=== PATIENT | female | born 1955 | race Caucasian/White ===

== ENCOUNTER 2021-05-01 00:23 | Emergency (ER) | payer OTHER ==
[~2021-05-01] VITALS: Ht 170.2 cm; Wt 72.6 kg
--- NOTE | ~2021-05-01 | EMS ---
[address] [address] EMS Patient Care Report Name: JERRY ARNOLD Room #: DEP VIDA Hays#: [id number] Admission: 05/01/21 Attend Phys: Discharge: 05/01/21 Date of : 53 Report #: [id number] THIS REPORT FOR: //name// Report Transmitted: 05/02/2021 09:44 EMS Care Summary [place], [place]/[facility] Incident [id number] @ 04/30/2021 23:29 Incident Location [address] [place] [address] Patient JERRY ARNOLD Female, 66 Years 1955 Patient Address [address] [place] [address] Patient History Asthma,Chronic Obstructive Pulmonary Disease (COPD),Diabetes,Hypertension (HTN),Cardiac - Stent, Patient Allergies No known allergies, Patient Medications Losartan, Clopidogrel, Citalopram, Metoprolol, Furosemide, Potassium, Metformin, Atorvastatin, Chief Complaint CARDIAC ARREST Disposition Transported [place] Reason Cardiac Arrest/ Transported To [facility] Narrative M30 RESPONDED EMERGENCY TO A CARDIAC ARREST. ON SCENE M30 WAS RECIEVED BY FAMILY MEMBERS AND DIRECTED EMS TO THE BATHROOM WHERE A 66 YR OLD FEMALE WAS [address] [address] EMS Patient Care Report Name: JERRY ARNOLD Room #: DEP [facility]#: [id number] Admission: 05/01/21 Attend Phys: Discharge: 05/01/21 Date of : 53 Report #: [id number] LAYING SUPINE ON THE FLOOR. A FAMILY MEMBER WAS PERFORMING CPR ON THE FEMALE PRIOR EMS ARRIVAL. PT WAS PALE, BUT WARM UNDER HER ARMPITS. NO SIGNS OF TRAUMA OR BLEEDING NOTED. EXCREMENT WAS NOTED IN HER PANTS AROUND HER FEET. PT WAS FOUND APNEIC AND PULSLESS. FAMILY BELIEVED THE PT'S DOWN TIME WAS APROX. 30 MIN. FAMILY REPORTED A PT'S MEDICAL HISOTRY OF 3 CARDIAC STENT IN THE LAST YEAR. COPD, HYPERTENSION AND ASTHMA WERE ALSO STATED BY FAMILY ON SCENE. AFTER PT CONTACT, PT WAS QUICKLY MOVED TO THE LIVINGROOM FLOOR BY EMS TO RESUME CPR. TWO ROUNDS OF MANUAL CPR WERE PERFORMED BY FIRST RESPONDERS BEFORE MOVING PT TO THE AUTO PULSE DEVICE. CARDIAC ARREST PROTOCOL WAS INITIATED. IV ACCESS VIA IO AND FLUIDS WERE INITIATED. FIRST RHYTHM CHECK SHOWED ASYSTOLE. SUBSEQUENT RHYTHM CHECKS REVEALED THE PT TO BE IN V-FIB. EMS DELIVERED SHOCK A TOTAL OF 3 TIMES. CPR WAS CONITNUED WITH INTERVALS OF EPI. AMIODARONE WAS ADMINISTERED WELL. PT WAS PACKAGED FOR TRANSPORT ON A DILIP DATE PULLER. PT WAS SECURED TO THE AUTO-PULES DEVICE WITH [facility]ESS AND MOVED TO THE STRETCHER OUTSIDE THE FRONT DOOR. PT WAS SECURED WITH SE[facility]ELTS AND MOVED TO THE AMBULANCE. CPR CONTINUED EN ROUTE TO [facility]. LAST TWO RHYTHM CHECKS PRIOR HOSPITAL ARRIVAL WAS ASYSTOLE. PT CARE WAS TRANSFERRED TO ER STAFF IN TRAUMA ROOM. PT WAS MOVED TO BED BY EMS AND ER STAFF. PT WAS LEFT UNDER PHYSICAN CARE WHOSE TEAM RESUME CPR EFFORTS Initial Vitals @23:44P: 26, @23:50P: 185,R: 12,EtCO2: 33, @23:47P: 159,EtCO2: 33, @23:54P: 167,EtCO2: 48, @23:54P: 164,R: 11,EtCO2: 47, @23:56P: 182,R: 12,EtCO2: 41, @23:47R: 12,EtCO2: 35, @23:55R: 10,EtCO2: 40, @23:41P: 106, @23:58P: 125,R: 11,EtCO2: 46, @23:43P: 106, @23:58P: 133,R: 9,EtCO2: 48, @23:52P: 136,R: 15,EtCO2: 39, @23:50P: 164,R: 11,EtCO2: 32, @00:12P: 114,R: 9,EtCO2: 44, @00:00P: 152,EtCO2: 45, @00:01P: 100,EtCO2: 43, @00:17P: 133,R: 9,EtCO2: 31, @00:18P: 163,R: 16,EtCO2: 30, @00:16P: 98,R: 15,EtCO2: 41, @00:00P: 134,R: 11,EtCO2: 47, @00:07P: 109,R: 14,EtCO2: 38, @00:10P: 40,R: 12,EtCO2: 42, @00:00P: 105, @00:03P: 132,R: 11,EtCO2: 46, [facility] [address] [place] [address] EMS Patient Care Report Name: JERRY ARNOLD [id number] Admission: 05/01/21 Attend Phys: Discharge: 05/01/21 Date of : 53 Report #: [id number] @00:05P: 48,R: 16,EtCO2: 41, @00:09R: 16,EtCO2: 43, @00:00P: 86,EtCO2: 46, @00:02P: 148,R: 11,EtCO2: 47, @00:09P: 121,R: 22,EtCO2: 37, @00:15P: 79,R: 15,EtCO2: 35, @23:38P: 207,R: 16,BP: 0/0,Pain: 0/10,GCS: 3,Glucose: 289,Revised Trauma: 4, Assessments @23:35MENTAL:Unresponsive,SKIN:Pale,HEENT:Eyes: Left: Dilated,Eyes: Right: Dilated,Head/Face: No Abnormalities,LUNG SOUNDS:Right Lower: Distension,Left Upper: Distension,Left Lower: Distension,Right Upper: Distension,General: No Abnormalities,ABDOMEN:Right Lower: Distension,Left Upper: Distension,Left Lower: Distension,Right Upper: Distension,General: No Abnormalities,PELVIS//GI:No Abnormalities,EXTREMITIES:Left Arm: No Abnormalities,Right Arm: No Abnormalities,Left Leg: No Abnormalities,Right Leg: No Abnormalities,PULSE:Radial: Absent,NEURO: Impression Cardiac arrest Procedures @23:35ALS AssessmentResponse: UnchangedSucceeded@23:50Response: UnchangedSucceeded@00:00Epinephrine 1:10 - 1 Milligrams (mg) - Intravenous (IV)Response: Unchanged@00:09Epinephrine 1:10 - 1 Milligrams (mg) - Intraosseous (IO)Response: Unchanged@23:54Epinephrine 1:10 - 1 Milligrams (mg) - Intravenous (IV)Response: Improved@00:00Response: UnchangedSucceeded@23:42Epinephrine 1:10 - 1 Milligrams (mg) - Intravenous (IV)Response: Unchanged@23:58General Comments@23:36Response: UnchangedSucceeded@23:54Response: UnchangedSucceeded@23:47Epinephrine 1:10 - 1 Milligrams (mg) - Intravenous (IV)Response: Unchanged@23:41Normal Saline (.9% NaCl) 500cc (EZ-IO (Blue 25mm)) Site: UN-Eszsk-Sqmz ProximalResponse: UnchangedSucceeded@00:01Amiodarone - 300 Milligrams (mg) - Intraosseous (IO)Response: Unchanged@00:12Amiodarone - 150 Milligrams (mg) - Intraosseous (IO)Response: Unchanged Timeline 23:28,Call Received 23:28,Dispatch Notified 23:29,Dispatched 23:29,En Route 23:34,On Scene 23:35,At Patient 23:35,ALS Assessment,Response: UnchangedSucceeded, 23:36,Response: UnchangedSucceeded, 23:38,BP: 0/0 M,PULSE: 207,RR: 16 R,SPO2: Ox,ETCO2: ,B,PAIN: 0,GCS: 3, [address] [address] EMS Patient Care Report Name: CLAYTON,JERRYJARRETT FONSECA Room #: CASEY Hays#: [id number] Admission: 05/01/21 Attend Phys: Discharge: 05/01/21 Date of : 53 Report #: [id number] 23:41,Normal Saline (.9% NaCl) 500cc EZ-IO (Blue 25mm) Site: OL-Hapmp-Psuk Proximal,Response: UnchangedSucceeded, 23:41,BP: / M,PULSE: 106,RR: R,SPO2: Ox,ETCO2: ,BG: ,PAIN: ,GCS: , 23:42,Epinephrine 1:10 - 1 Milligrams (mg) - Intravenous (IV),Response: Unchanged 23:43,BP: / M,PULSE: 106,RR: R,SPO2: Ox,ETCO2: ,BG: ,PAIN: ,GCS: , 23:44,BP: / M,PULSE: 26,RR: R,SPO2: Ox,ETCO2: ,BG: ,PAIN: ,GCS: , 23:47,BP: / M,PULSE: 159,RR: R,SPO2: Ox,ETCO2: 33 ,BG: ,PAIN: ,GCS: , 23:47,Epinephrine 1:10 - 1 Milligrams (mg) - Intravenous (IV),Response: Unchanged 23:47,BP: / M,PULSE: ,RR: 12 R,SPO2: Ox,ETCO2: 35 ,BG: ,PAIN: ,GCS: , 23:50,BP: / M,PULSE: 185,RR: 12 R,SPO2: Ox,ETCO2: 33 ,BG: ,PAIN: ,GCS: , 23:50,Response: UnchangedSucceeded, 23:50,BP: / M,PULSE: 164,RR: 11 R,SPO2: Ox,ETCO2: 32 ,BG: ,PAIN: ,GCS: , 23:52,BP: / M,PULSE: 136,RR: 15 R,SPO2: Ox,ETCO2: 39 ,BG: ,PAIN: ,GCS: , 23:54,Epinephrine 1:10 - 1 Milligrams (mg) - Intravenous (IV),Response: Improved 23:54,BP: / M,PULSE: 164,RR: 11 R,SPO2: Ox,ETCO2: 47 ,BG: ,PAIN: ,GCS: , 23:54,Response: UnchangedSucceeded, 23:54,BP: / M,PULSE: 167,RR: R,SPO2: Ox,ETCO2: 48 ,BG: ,PAIN: ,GCS: , 23:55,BP: / M,PULSE: ,RR: 10 R,SPO2: Ox,ETCO2: 40 ,BG: ,PAIN: ,GCS: , 23:56,BP: / M,PULSE: 182,RR: 12 R,SPO2: Ox,ETCO2: 41 ,BG: ,PAIN: ,GCS: , 23:58,BP: / M,PULSE: 133,RR: 9 R,SPO2: Ox,ETCO2: 48 ,BG: ,PAIN: ,GCS: , 23:58,General Comments, 23:58,BP: / M,PULSE: 125,RR: 11 R,SPO2: Ox,ETCO2: 46 ,BG: ,PAIN: ,GCS: , 00:00,Epinephrine 1:10 - 1 Milligrams (mg) - Intravenous (IV),Response: Unchanged 00:00,BP: / M,PULSE: 134,RR: 11 R,SPO2: Ox,ETCO2: 47 ,BG: ,PAIN: ,GCS: , 00:00,BP: / M,PULSE: 105,RR: R,SPO2: Ox,ETCO2: ,BG: ,PAIN: ,GCS: , 00:00,BP: / M,PULSE: 152,RR: R,SPO2: Ox,ETCO2: 45 ,BG: ,PAIN: ,GCS: , 00:00,Response: UnchangedSucceeded, 00:00,BP: / M,PULSE: 86,RR: R,SPO2: Ox,ETCO2: 46 ,BG: ,PAIN: ,GCS: , 00:01,Amiodarone - 300 Milligrams (mg) - Intraosseous (IO),Response: Unchanged 00:01,BP: / M,PULSE: 100,RR: R,SPO2: Ox,ETCO2: 43 ,BG: ,PAIN: ,GCS: , 00:02,BP: / M,PULSE: 148,RR: 11 R,SPO2: Ox,ETCO2: 47 ,BG: ,PAIN: ,GCS: , 00:03,BP: / M,PULSE: 132,RR: 11 R,SPO2: Ox,ETCO2: 46 ,BG: ,PAIN: ,GCS: , 00:05,BP: / M,PULSE: 48,RR: 16 R,SPO2: Ox,ETCO2: 41 ,BG: ,PAIN: ,GCS: , 00:07,BP: / M,PULSE: 109,RR: 14 R,SPO2: Ox,ETCO2: 38 ,BG: ,PAIN: ,GCS: , 00:09,Epinephrine 1:10 - 1 Milligrams (mg) - Intraosseous (IO),Response: Unchanged 00:09,BP: / M,PULSE: 121,RR: 22 R,SPO2: Ox,ETCO2: 37 ,BG: ,PAIN: ,GCS: , 00:09,BP: / M,PULSE: ,RR: 16 R,SPO2: Ox,ETCO2: 43 ,BG: ,PAIN: ,GCS: , 00:09,Depart Scene 00:10,BP: / M,PULSE: 40,RR: 12 R,SPO2: Ox,ETCO2: 42 ,BG: ,PAIN: ,GCS: , 00:12,Amiodarone - 150 Milligrams (mg) - Intraosseous (IO),Response: Unchanged 00:12,BP: / M,PULSE: 114,RR: 9 R,SPO2: Ox,ETCO2: 44 ,BG: ,PAIN: ,GCS: , 00:15,BP: / M,PULSE: 79,RR: 15 R,SPO2: Ox,ETCO2: 35 ,BG: ,PAIN: ,GCS: , [address] [place] [address] EMS Patient Care Report Name: JERRY ARNOLD [id number] Admission: 05/01/21 Attend Phys: Discharge: 05/01/21 Date of : 53 Report #: [id number] 00:16,BP: / M,PULSE: 98,RR: 15 R,SPO2: Ox,ETCO2: 41 ,BG: ,PAIN: ,GCS: , 00:17,BP: / M,PULSE: 133,RR: 9 R,SPO2: Ox,ETCO2: 31 ,BG: ,PAIN: ,GCS: , 00:18,At Destination 00:18,BP: / M,PULSE: 163,RR: 16 R,SPO2: Ox,ETCO2: 30 ,BG: ,PAIN: ,GCS: , 00:39,Call Closed Disclaimer v1.1 Copyright 2020 [employer] This EMS Care Summary contains data elements from the applicable legal record (which may be displayed differently). It is designed to provide pertinent information for the following purposes: continuity of care, clinical quality, and state data reporting. The complete legal record is available to ED staff and administrators of the receiving hospital in [employer]'s Patient Tracker. All data is provided "as is."
== END 2021-05-01 00:28 ==
LOC: ER 00:23
DX: I46.9 Cardiac arrest, cause unspecified (principal); I10 Essential (primary) hypertension; E11.9 Type 2 diabetes mellitus without complications; J44.9 Chronic obstructive pulmonary disease, unspecified